=== PATIENT | male | born 1985 | race Hispanic/Latino ===

== ENCOUNTER 2020-05-20 00:05 | Emergency (ER) | payer SELFPAY ==
[2020-05-20 00:49] LABS: #Basophils 0.1 thou/uL (0.0-0.2); #Eosinphils 0.4 thou/uL (0.0-0.7); #Lymphocytes 2.8 thou/uL (1.20-3.40); #Monocytes 0.5 thou/uL (0.11-0.59); %Basophils 1.2 % (0.0-1.0); %Eosinophils 5.8 % (0.0-10.0); %Monocytes 8.1 % (0.0-10.0); %Neutrophils 43.9 % (42.0-75.0); Hemoglobin 14.3 g/dL (14.0-18.0); Mean Corpuscular HGB CONC 35.3 g/dL (32.0-36.0); Mean Corpuscular Hemoglobin 30.5 pg (27.0-31.0); Mean Corpuscular Volume 86.5 fL (78.0-98.0); Mean Platelet Volume 9.4 fL (7.4-10.4); Platelet Count 231 thou/uL (130-400); RBC Distribution Width 11.7 % (11.5-14.5); White Blood Cell (WBC) Count 6.7 thou/uL (4.8-10.8)
[2020-05-20 01:11] LABS: ALT (SGPT) 39 U/L (8-55); AST (SGOT) 27 U/L (5-34); Albumin 4.3 g/dL (3.5-5.0); Alkaline Phosphatase 112 U/L (40-110); Anion Gap 12 mmol/L (10-20); BUN (Urea Nitrogen) 8 mg/dL (8.9-20.6); Bilirubin, Total 0.2 mg/dL (0.2-1.2); CK (CPK) 197 U/L (30-200); Calc. Creatinine Clearance 0 mL/min (70-130); Calcium 9.5 mg/dL (7.8-10.44); Carbon Dioxide 25 mmol/L (22-29); Chloride 105 mmol/L (98-107); Estimated GFR-MDRD Greater than 90; Glucose 196 mg/dL (70-105); Protein, Total 7.3 g/dL (6.0-8.3); Sodium 139 mmol/L (136-145)
[2020-05-20] MEDS ORDERED: Potassium Chloride 20 MEQ TAB ONE (01:46)
--- NOTE | 2020-05-20 07:36 | RAD ---
RADIOGRAPH CHEST 1 VIEW: DATE: 05/20/2020 HISTORY: 35-year-old male with chest pain FINDINGS: The visualized lung song are clear. The cardiomediastinal silhouette and hilar shadows are normal. The lateral costophrenic angles are sharp. The osseous structures appear normal. There is no pneumothorax. IMPRESSION: Negative.
--- NOTE | 2020-05-21 15:17 | EKG ---
Test Reason : Blood Pressure : / mmHG Vent. Rate : 057 BPM Atrial Rate : 057 BPM P-R Int : 152 ms QRS Dur : 088 ms QT Int : 446 ms P-R-T Axes : 039 035 016 degrees QTc Int : 434 ms Sinus bradycardia Otherwise normal ECG Confirmed by MIRIAN LUIS M.D. ([id number]), news videotape editor MIKE DUGGAN ([id number] on 05/21/2020 3:16:55 PM Referred By: Confirmed By:MIRIAN LUIS M.D.
== END 2020-05-20 02:06 | disposition home or self-care (01) ==
LOC: ERS 00:05
DX: R07.9 Chest pain, unspecified (principal); F41.9 Anxiety disorder, unspecified
CPT/HCPCS: 71045; 80053; 82550; 84484; 85025; 93005

== ENCOUNTER 2020-11-19 20:20 | Emergency (ER) | payer SELFPAY ==
[2020-11-19 21:02] LABS: #Eosinphils 0.1 thou/uL (0.0-0.7); #Lymphocytes 2.2 thou/uL (1.20-3.40); #Monocytes 0.8 thou/uL (0.11-0.59); #Neutrophils 6.9 thou/uL (1.40-6.50); %Basophils 0.1 % (0.0-1.0); %Eosinophils 0.5 % (0.0-10.0); %Lymphocytes 21.8 % (21.0-51.0); %Monocytes 7.9 % (0.0-10.0); %Neutrophils 69.7 % (42.0-75.0); Hemoglobin 14.5 g/dL (14.0-18.0); Mean Corpuscular HGB CONC 34.5 g/dL (32.0-36.0); Mean Corpuscular Hemoglobin 30.3 pg (27.0-31.0); Mean Corpuscular Volume 87.9 fL (78.0-98.0); Mean Platelet Volume 9.3 fL (7.4-10.4); Platelet Count 195 thou/uL (130-400); RBC Distribution Width 11.7 % (11.5-14.5); Red Blood Cell (RBC) Count 4.79 mill/uL (4.70-6.10)
[2020-11-19 21:21] LABS: ALT (SGPT) 37 U/L (8-55); AST (SGOT) 37 U/L (5-34); Albumin 4.5 g/dL (3.5-5.0); Alkaline Phosphatase 106 U/L (40-110); Anion Gap 18 mmol/L (10-20); BUN (Urea Nitrogen) 11 mg/dL (8.9-20.6); Bilirubin, Total 0.4 mg/dL (0.2-1.2); Calc. Creatinine Clearance 0 mL/min (70-130); Calcium 8.8 mg/dL (7.8-10.44); Carbon Dioxide 20 mmol/L (22-29); Chloride 102 mmol/L (98-107); Globulin 3.6 g/dL (2.4-3.5); Glucose 127 mg/dL (70-105); Potassium 3.5 mmol/L (3.5-5.1); Protein, Total 8.1 g/dL (6.0-8.3); Sodium 136 mmol/L (136-145)
--- NOTE | 2020-11-19 22:09 | RAD ---
CHEST ONE VIEW: History: Fever Comparison: 05-10-2020 FINDINGS: Lungs are clear. No pneumothorax. No effusion. Cardiac silhouette and mediastinal contours are within normal limits. No acute osseous abnormality. IMPRESSION: No acute intrathoracic abnormality. POS: HOME
[2020-11-19] MEDS ORDERED: Morphine 4 MG/ML VIAL ONE (22:13)
[2020-11-19] MEDS ORDERED: Ketorolac Tromethamine 30 MG/ML VIAL ONE (22:13)
[2020-11-19] MEDS ORDERED: cefTRIAXone\\ROCEPHIN 1 GM VIAL ONE (22:13)
[2020-11-19] MEDS ORDERED: Ondansetron PF 4 MG/2 ML Vial ONE (22:13)
[2020-11-19 22:34] LABS: MONO NEGATIVE CONTROL ZONE White (Negative) (White); MONO POSITIVE CONTROL Pink Line (Positive) (PINK/RED); Mononucleosis NEGATIVE (NEGATIVE)
[2020-11-19 23:06] LABS: Free T4 (Free Thyroxine) 0.88 ng/dL (0.70-1.48); Thyroid Stimulating Hormone 1.3125 uIU/mL (0.35-4.94)
[2020-11-19] MEDS ORDERED: Acetaminophen 500 MG TAB ONE (23:43)
[2020-11-20 05:27] LABS: SARS-CoV-2 MS2 Positive; SARS-CoV-2 N Gene Positive; SARS-CoV-2 S Gene Positive; SARS-CoV-2 by NAA DETECTED (NotDetected); SARS-CoV-2 orf1ab Positive
--- NOTE | 2020-11-20 07:35 | CT ---
PRELIMINARY REPORT/DIRECT RADIOLOGY/EMERGENCY AFTER HOURS PROCEDURE: EXAM: CT Abdomen and Pelvis Without Intravenous Contrast CLINICAL HISTORY: Presents for general malaise which she has felt on and off for several weeks accord ing to him. He notes that over the past several days he developed a fever chills cough and some left lower quadrant abdominal pain he notes he has no pertinent past medical history and no allergies he does not smoke drink or do any drugs. Does note he has some left lower quadrant abdominal pain for several days. TECHNIQUE: Axial computed tomography images of the abdomen and pelvis without intravenous contrast. CONTRAST: None. COMPARISON: None provided. FINDINGS: LUNG BASES: There are bilateral lower lung groundglass opacities present, most prominent in the lower lobes. LIVER: Unremarkable. GALLBLADDER AND BILE DUCTS: Unremarkable. No calcified stone. No ductal dilation. PANCREAS: Unremarkable. SPLEEN: Unremarkable. ADRENAL GLANDS: Unremarkable. KIDNEYS, URETERS, AND BLADDER: Unremarkable. No hydronephrosis or nephrolithiasis. No ureteral or shiv dder calculi. STOMACH AND BOWEL: No obstruction. No wall thickening. No CT evidence of colitis or acute diverticuli tis. APPENDIX: No CT evidence for appendicitis. PERITONEUM: No free fluid. No free air. LYMPH NODES: No lymphadenopathy. REPRODUCTIVE: Unremarkable as visualized. VASCULATURE: No aortic aneurysm. ABDOMINAL WALL AND SOFT TISSUES: Unremarkable. BONES: No fracture or suspicious osseous abnormality. IMPRESSION: No acute intra-abdominal or pelvic abnormality. Groundglass opacity seen within the lung bases, predominantly within the lower lobes posteriorly. This is concerning for infection/pneumonia to include atypical etiologies such as influenza or COVID 19 pneumonia. ELECTRONICALLY SIGNED BY: Garland Quintero DO Nov 20, 2020 12:34:17 AM RESOURCE TEACHER FINAL REPORT CT ABDOMEN AND PELVIS WITHOUT CONTRAST: History: Abdominal pain. Comparison: None. Findings/impression: Concordant with the initial report. Transcribed Date/Time: 11/20/2020 7:56 AM
== END 2020-11-20 01:15 | disposition home or self-care (01) ==
LOC: ERS 20:20
DX: U07.1 COVID-19 (principal)
CPT/HCPCS: 36415; 71045; 74176; 80053; 83605; 84439; 84443; 85025; 86308; 87040; 87635; 87804; 93005; 96365; 96375; J0696; J1885; J2270; J2405; U0003